=== PATIENT | male | born 1995 | race Caucasian/White ===

== ENCOUNTER 2016-11-29 14:01 | Emergency (ER) | payer OTHER ==
[~2016-11-29 14:01] MED LIST: BACTRIM DS TABL1 TA1 PO; CLARITIN10 MG PO; KEFLEX500 MG PO; LORTAB 5/500 TA1 TA1 PO; NO MEDICATIONS; VOLTAREN75 MG PO; VYVANSE40 MG PO
== END 2016-11-29 15:27 | disposition home or self-care (01) ==
LOC: SED 14:01
DX: L05.01 Pilonidal cyst with abscess (principal); J45.909 Unspecified asthma, uncomplicated; Z88.0 Allergy status to penicillin; Z87.891 Personal history of nicotine dependence
CPT/HCPCS: 10060; 99283

== ENCOUNTER 2017-03-13 12:04 | Emergency (ER) | payer OTHER ==
[2017-03-13] MEDS ORDERED: BACTRIM DS TAB1 EACH PO (13:35)
[2017-03-13] MEDS ORDERED: LORCET 5-325 M1 EACH PO (13:35)
== END 2017-03-13 13:36 | disposition home or self-care (01) ==
LOC: SED 12:04
DX: L05.01 Pilonidal cyst with abscess (principal); J45.909 Unspecified asthma, uncomplicated; Z88.0 Allergy status to penicillin; Z79.899 Other long term (current) drug therapy
CPT/HCPCS: 10080; 99283